=== PATIENT | male | born 1965 | race American Indian/Alaskan Native ===

== ENCOUNTER 2021-02-07 01:45 | Emergency (ER) | payer BC, OTHER ==
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
[2021-02-07] MEDS ORDERED: HYDROcodone/ACETAMINOPHEN 5-325 MG TAB PO ONE (04:55)
[2021-02-07] MEDS ORDERED: ONDANSETRON 4 MG ODT TAB PO ONE (04:55)
[2021-02-07] MEDS ORDERED: IBUPROFEN 800 MG TAB PO ONE (04:55)
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
== END 2021-02-07 05:29 | disposition home or self-care (01) ==
LOC: ED 01:45
DX: M62.830 Muscle spasm of back (principal); M62.838 Other muscle spasm; I10 Essential (primary) hypertension; Z79.899 Other long term (current) drug therapy; Z88.8 Allergy status to other drugs, medicaments and biological substances; V49.49XA Driver injured in collision with other motor vehicles in traffic accident, initial encounter; Y92.410 Unspecified street and highway as the place of occurrence of the external cause; Y93.89 Activity, other specified; Y99.8 Other external cause status
CPT/HCPCS: 70450; 72125; 72131; Q0162